=== PATIENT | male | born 1960 | race Caucasian/White ===

== ENCOUNTER 2016-09-09 08:44 | Emergency (ER) | payer MEDICARE, OTHER ==
[~2016-09-09] VITALS: Ht 188 cm; Wt 95.4 kg
[2016-09-09 08:44] VITALS: BP 186/91; PULSE 102; RESP 16; TEMP 99; O2SAT 96
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
[2016-09-09] MEDS ORDERED: ARIP300I IM (15:12)
== END 2016-09-09 10:09 | disposition home or self-care (01) ==
LOC: NEPE 08:44
DX: Z02.89 Encounter for other administrative examinations (principal); F22 Delusional disorders; F28 Other psychotic disorder not due to a substance or known physiological condition; R45.6 Violent behavior; Z72.0 Tobacco use
CPT/HCPCS: 99285